=== PATIENT | female | born 1960 | race Caucasian/White ===

== ENCOUNTER 2017-02-27 13:47 | Inpatient (IN) | payer MEDICARE, MEDICAID ==
[~2017-02-27] VITALS: Ht 152.4 cm; Wt 96.1 kg
[2017-02-27] VITALS (164 sets, daily range): BP systolic 90–94; BP diastolic 68–71; PULSE 110–119; TEMP 98–98.4; O2SAT 81–96
[2017-02-27] MEDS ORDERED: SENOKOT S 50 MG1 TAB PO (14:22)
[2017-02-27] MEDS ORDERED: PAXIL 20MG20 MG PO (14:23)
[2017-02-27] MEDS ORDERED: MIRALAX PA17 GM/Dose PO (14:23)
[2017-02-27] MEDS ORDERED: OSCAL W/VIT D250 MG PO (14:24)
[2017-02-27] MEDS ORDERED: DILANTIN O100 MG/4 M (14:25)
[2017-02-27] MEDS ORDERED: PHENOBARBITAL32.4 MG PO (14:26)
[2017-02-27] MEDS ORDERED: REGLAN 5MG T5 MG/TAB PO (14:26)
[2017-02-27] MEDS ORDERED: QUESTRAN4 GM/9 GM PO (14:27)
[2017-02-27] MEDS ORDERED: LOMOTIL 0.025 M1 TAB PO ×2 (14:28→20:22)
[2017-02-27 15:11] LABS: HEMATOCRIT 45.5 % (37.0-47.0); MEAN CELL VOLUME 93 fl (80.0-100.0); MEAN CORPUSCULAR HEMOGLOBIN 33 pg (27.0-31.0); MEAN CORPUSCULAR HGB CONC 35 g/dl (33.0-37.0); MEAN PLATELET VOLUME 10.4 fl (7.4-10.4); PLATELET COUNT 285 K/mm3 (130-400); RED BLOOD COUNT 4.91 M/mm3 (4.10-5.30); REDCELL DISTRIBUTION WIDTH-CV 12.9 % (11.5-14.5); WHITE BLOOD COUNT 17.7 K/mm3 (4.8-10.8)
[2017-02-27 15:14] LABS: ADD PATHOLOGY DIFF REVIEW NO
[2017-02-27 15:22] LABS: ADJUSTED CALCIUM 9.2 mg/dL (8.4-10.2); ALBUMIN 3.7 gm/dL (3.5-5.0); CREATININE, serum 0.63 mg/dL (0.52-1.25); TOTAL PROTEIN 6.7 gm/dL (6.4-8.2)
[2017-02-27 15:27] LABS: POTASSIUM 2.5 mmol/L (3.4-5.0)
[2017-02-27 15:30] LABS: BAND 71 % (0-10); METAMYELOCYTE 1 % (0-0); MYELOCYTE 1 % (0-0); NEUTROPHILS 5 % (42.0-75.2); PLATELET ESTIMATE NORMAL (NORMAL); TOTAL CELLS COUNTED 100
[2017-02-27 15:56] LABS: PH 5 (5-8); SQUAMOUS EPITHELIAL None Seen /hpf; URINE APPEARANCE Hazy; URINE BACTERIA Rare /hpf; URINE BILIRUBIN Negative (NEGATIVE); URINE BLOOD Negative (NEGATIVE); URINE COLOR Amber; URINE GLUCOSE Negative (NEGATIVE); URINE KETONE Negative (NEGATIVE); URINE UROBILINOGEN Negative (NEGATIVE)
[2017-02-27 19:16] LABS: MAGNESIUM 1.5 mg/dL (1.6-2.3)
[2017-02-27] MEDS ORDERED: TYLENOL 325MG325 MG PO (20:19)
[2017-02-27] MEDS ORDERED: ADVIL200 MG PO (20:19)
[2017-02-27] MEDS ORDERED: MAXALT10 MG PO (20:22)
[2017-02-27 23:09] LABS: PH 5 (5-8); SQUAMOUS EPITHELIAL 0-2 /hpf; URINE APPEARANCE Clear; URINE BACTERIA None Seen /hpf; URINE BILIRUBIN Negative (NEGATIVE); URINE BLOOD 2+ (NEGATIVE); URINE COLOR Yellow; URINE GLUCOSE Negative (NEGATIVE); URINE KETONE Negative (NEGATIVE); URINE UROBILINOGEN Negative (NEGATIVE); URINE WBC 0-2 /hpf
[2017-02-28] VITALS (374 sets, daily range): BP systolic 95–112; BP diastolic 60–75; PULSE 90–106; TEMP 97.3–99; O2SAT 80–100
[2017-02-28 08:02] LABS: MEAN CELL VOLUME 97 fl (80.0-100.0); MEAN CORPUSCULAR HGB CONC 34 g/dl (33.0-37.0); MEAN PLATELET VOLUME 11.2 fl (7.4-10.4); RED BLOOD COUNT 3.68 M/mm3 (4.10-5.30); REDCELL DISTRIBUTION WIDTH-CV 13.2 % (11.5-14.5); WHITE BLOOD COUNT 13.1 K/mm3 (4.8-10.8)
[2017-02-28 08:12] LABS: HEMATOCRIT 35.7 % (37.0-47.0); MEAN CORPUSCULAR HEMOGLOBIN 33 pg (27.0-31.0); PLATELET COUNT 179 K/mm3 (130-400)
[2017-02-28 08:17] LABS: CALCIUM 7.3 mg/dL (8.4-10.2); CREATININE, serum 0.53 mg/dL (0.52-1.25); MAGNESIUM 3.6 mg/dL (1.6-2.3); POTASSIUM 4.4 mmol/L (3.4-5.0)
[2017-02-28 11:47] LABS: BAND 60 % (0-10); DOHLE BODIES PRESENT; EOSINOPHIL 1 % (0-4); METAMYELOCYTE 15 % (0-0); MYELOCYTE 3 % (0-0); NEUTROPHILS 7 % (42.0-75.2); PLATELET ESTIMATE NORMAL (NORMAL); TOTAL CELLS COUNTED 100; TOXIC GRANULATION PRESENT
[2017-02-28 12:04] LABS: ADD PATHOLOGY DIFF REVIEW YES
[2017-03-01 06:07] VITALS: BP 110/61; PULSE 86; TEMP 97.6
[2017-03-01 08:06] LABS: PATHOLOGY DIFF REVIEW OK
[2017-03-01 08:10] LABS: ADD PATHOLOGY DIFF REVIEW NO
[2017-03-01 08:14] LABS: MEAN CELL VOLUME 101 fl (80.0-100.0); MEAN CORPUSCULAR HGB CONC 32 g/dl (33.0-37.0); MEAN PLATELET VOLUME 11.6 fl (7.4-10.4); PLATELET COUNT 164 K/mm3 (130-400); RED BLOOD COUNT 3.51 M/mm3 (4.10-5.30); REDCELL DISTRIBUTION WIDTH-CV 13.9 % (11.5-14.5); WHITE BLOOD COUNT 10.6 K/mm3 (4.8-10.8)
[2017-03-01 08:33] LABS: CALCIUM 7.4 mg/dL (8.4-10.2); CREATININE, serum 0.49 mg/dL (0.52-1.25); MAGNESIUM 2.2 mg/dL (1.6-2.3)
[2017-03-01 08:39] LABS: POTASSIUM 2.4 mmol/L (3.4-5.0)
[2017-03-01 08:52] LABS: HEMATOCRIT 35.3 % (37.0-47.0); HEMOGLOBIN 11.4 g/dl (12.5-16.0); MEAN CORPUSCULAR HEMOGLOBIN 32 pg (27.0-31.0)
[2017-03-01 09:40] VITALS: BP 108/56; PULSE 82; TEMP 97.3
[2017-03-01 13:46] LABS: BAND 46 % (0-10); NEUTROPHILS 36 % (42.0-75.2); PLATELET ESTIMATE NORMAL (NORMAL); TOTAL CELLS COUNTED 100
[2017-03-01 14:10] VITALS: BP 96/61; PULSE 62; TEMP 97.5
[2017-03-01 17:24] VITALS: BP 89/50; PULSE 96; TEMP 98.8
[2017-03-01 22:00] VITALS: BP 94/54; PULSE 78; TEMP 97.5
[2017-03-02 04:02] LABS: CALCIUM 7.3 mg/dL (8.4-10.2); CREATININE, serum 0.45 mg/dL (0.52-1.25); MAGNESIUM 1.7 mg/dL (1.6-2.3); POTASSIUM 3.9 mmol/L (3.4-5.0)
[2017-03-02 05:08] VITALS: BP 101/53; PULSE 76; TEMP 97.6
[2017-03-02 10:24] VITALS: BP 92/55; PULSE 94; TEMP 97.9
[2017-03-02 13:40] VITALS: BP 92/56; PULSE 74; TEMP 98.1
[2017-03-02 17:40] VITALS: BP 107/63; PULSE 99
[2017-03-02 22:49] VITALS: BP 90/54; PULSE 102; TEMP 98.1
[2017-03-03 06:11] VITALS: BP 110/70; PULSE 91; TEMP 98.4
[2017-03-03 07:21] LABS: ADD PATHOLOGY DIFF REVIEW NO
[2017-03-03 07:35] LABS: HEMOGLOBIN 12.2 g/dl (12.5-16.0); MEAN CELL VOLUME 97 fl (80.0-100.0); MEAN CORPUSCULAR HEMOGLOBIN 32 pg (27.0-31.0); MEAN CORPUSCULAR HGB CONC 34 g/dl (33.0-37.0); MEAN PLATELET VOLUME 11.1 fl (7.4-10.4); PLATELET COUNT 115 K/mm3 (130-400); RED BLOOD COUNT 3.77 M/mm3 (4.10-5.30); REDCELL DISTRIBUTION WIDTH-CV 13.5 % (11.5-14.5); WHITE BLOOD COUNT 7.1 K/mm3 (4.8-10.8)
[2017-03-03 07:51] LABS: CALCIUM 7.4 mg/dL (8.4-10.2); CREATININE, serum 0.39 mg/dL (0.52-1.25); MAGNESIUM 1.5 mg/dL (1.6-2.3)
[2017-03-03 07:53] LABS: POTASSIUM 2.8 mmol/L (3.4-5.0)
[2017-03-03 08:09] LABS: HEMATOCRIT 36.4 % (37.0-47.0)
[2017-03-03 09:17] VITALS: BP 111/70; PULSE 107; TEMP 98.2
[2017-03-03 11:52] LABS: BAND 15 % (0-10); EOSINOPHIL 2 % (0-4); MYELOCYTE 5 % (0-0); NEUTROPHILS 59 % (42.0-75.2); TOTAL CELLS COUNTED 100
[2017-03-03 11:53] LABS: PLATELET ESTIMATE NORMAL (NORMAL)
[2017-03-03 13:22] VITALS: BP 111/69; PULSE 100; TEMP 98.2
[2017-03-03 16:54] VITALS: BP 115/72; PULSE 88; TEMP 97.6
[2017-03-03 20:52] VITALS: BP 110/64; PULSE 83; TEMP 97.5
[2017-03-04 00:50] VITALS: BP 105/63; PULSE 73; TEMP 98.5
[2017-03-04 04:54] VITALS: BP 112/69; PULSE 80; TEMP 97
[2017-03-04 08:12] LABS: HEMATOCRIT 37.4 % (37.0-47.0); HEMOGLOBIN 12.3 g/dl (12.5-16.0); MEAN CELL VOLUME 97 fl (80.0-100.0); MEAN CORPUSCULAR HEMOGLOBIN 32 pg (27.0-31.0); MEAN CORPUSCULAR HGB CONC 33 g/dl (33.0-37.0); MEAN PLATELET VOLUME 11.5 fl (7.4-10.4); PLATELET COUNT 123 K/mm3 (130-400); RED BLOOD COUNT 3.87 M/mm3 (4.10-5.30); REDCELL DISTRIBUTION WIDTH-CV 13.7 % (11.5-14.5); WHITE BLOOD COUNT 10.2 K/mm3 (4.8-10.8)
[2017-03-04 08:26] LABS: ANION GAP 7 mmol/L (7-16); BLOOD UREA NITROGEN < 2 mg/dL (7-17); CALCIUM 7.6 mg/dL (8.4-10.2); CARBON DIOXIDE 25 mmol/L (22-30); CHLORIDE 109 mmol/L (98-107); CREATININE, serum 0.39 mg/dL (0.52-1.25); GLUCOSE 95 mg/dL (74-106); MAGNESIUM 2.1 mg/dL (1.6-2.3); POTASSIUM 4.1 mmol/L (3.4-5.0); SODIUM 140 mmol/L (137-145)
[2017-03-04 08:27] LABS: ADD PATHOLOGY DIFF REVIEW NO
[2017-03-04 10:07] VITALS: BP 99/72; PULSE 99; TEMP 98.7
[2017-03-04] MEDS ORDERED: CIPRO 500MG TA500 MG PO (10:49)
[2017-03-04] MEDS ORDERED: KLOR-CON M2020 MEQ PO (11:25)
[2017-03-04 13:58] LABS: BAND 35 % (0-10); MYELOCYTE 5 % (0-0); NEUTROPHILS 40 % (42.0-75.2); TOTAL CELLS COUNTED 100
[2017-03-04 13:59] LABS: PLATELET ESTIMATE NORMAL (NORMAL)
== END 2017-03-04 12:55 | disposition home or self-care (01) | DRG 872 ==
LOC: COL.ER 13:47 → ICU 17:39 → SURG 02-28 12:11
PROVIDERS: Emergency Medicine; Internal Medicine; Nurse Practitioner Family
DX: A41.89 Other specified sepsis (principal); A04.8 Other specified bacterial intestinal infections; E44.0 Moderate protein-calorie malnutrition; Z68.1 Body mass index [BMI] 19.9 or less, adult; Z66 Do not resuscitate; G80.9 Cerebral palsy, unspecified; E87.6 Hypokalemia; E83.42 Hypomagnesemia; D69.6 Thrombocytopenia, unspecified
CPT/HCPCS: 99223-AI; 99232-AI; 99233-AI; 99239; A4315; J1650; J2543; J2560; J3475; J3480; J7030; J7040; J7050; Q9967

== ENCOUNTER 2020-12-08 20:27 | Observation (INO) | payer MEDICARE, MEDICAID ==
[~2020-12-08] VITALS: Ht 147.3 cm; Wt 42.0 kg
[~2020-12-08 20:27] MED LIST: ADVIL200 MG PO; CIPRO 500MG TA500 MG PO; DILANTIN O100 MG/4 M; KLOR-CON M2020 MEQ PO; LOMOTIL 0.025 M1 TAB PO; MAXALT10 MG PO; MIRALAX PA17 GM/Dose PO; OYSTER SHELL CA1 T22 PO; PAXIL 20MG20 MG PO; PHENOBARBITAL32.4 MG PO; QUESTRAN4 GM/9 GM PO; REGLAN 5MG T5 MG/TAB PO; SENOKOT S 50 MG1 TAB PO; TYLENOL 325MG325 MG PO
[2020-12-08 21:57] LABS: BASO # 0.1 (0.0-0.2); BASO % 0.8 % (0.0-2.0); EOS % 0.6 % (0-4.0); GRAN # 4.5 (1.4-6.5); GRAN % 73.3 % (42.2-75.2); HEMATOCRIT 48.6 % (37.0-47.0); HEMOGLOBIN 15.8 g/dl (12.5-16.0); LYMPH % 16.5 % (20.0-51.0); MEAN CELL VOLUME 104 fl (80.0-100.0); MEAN CORPUSCULAR HEMOGLOBIN 34 pg (27.0-31.0); MEAN CORPUSCULAR HGB CONC 33 g/dl (33.0-37.0); MEAN PLATELET VOLUME 10.7 fl (7.4-10.4); MONO # 0.5 (0.1-0.6); MONO % 8.6 % (1.7-9.3); PLATELET COUNT 231 K/mm3 (130-400); RED BLOOD COUNT 4.69 M/mm3 (4.10-5.30)
[2020-12-08 22:06] LABS: ALANINE AMINOTRANSFERASE 22 U/L (4-34); ALBUMIN 4.8 gm/dL (3.5-5.0); ALKALINE PHOSPHATASE 177 U/L (50-136); ANION GAP 14 mmol/L (7-16); AST,SGOT 24 U/L (15-37); BILIRUBIN,TOTAL 0.6 mg/dL (0.0-1.0); BLOOD UREA NITROGEN 24 mg/dL (7-17); CALCIUM 10.3 mg/dL (8.4-10.2); CARBON DIOXIDE 26 mmol/L (22-30); CHLORIDE 107 mmol/L (98-107); CREATININE, serum 0.38 (0.52-1.25); GLUCOSE 136 mg/dL (74-106); LIPASE 45 U/L (23-300); MAGNESIUM 2.3 mg/dL (1.6-2.3); POTASSIUM 4.2 mmol/L (3.4-5.0); SODIUM 147 mmol/L (137-145); TOTAL PROTEIN 8.5 gm/dL (6.4-8.2)
[2020-12-08 22:17] LABS: TROPONIN-I < 0.012 ng/mL (0.000-0.035)
[2020-12-09] VITALS (8 sets, daily range): BP systolic 101–137; BP diastolic 67–84; PULSE 67–101; TEMP 97.2–98.6
[2020-12-09 08:48] LABS: COLLECTION METHOD CATHETER
[2020-12-09 09:23] LABS: MUCOUS Present /lpf; PH 5 (5-8); SQUAMOUS EPITHELIAL 0-2 /hpf; URINE APPEARANCE Hazy; URINE BACTERIA Many /hpf; URINE BILIRUBIN Negative (NEGATIVE); URINE BLOOD Negative (NEGATIVE); URINE COLOR Amber; URINE GLUCOSE Negative (NEGATIVE); URINE KETONE 1+ (NEGATIVE); URINE LEUKOCYTE ESTERASE 1+ (NEGATIVE); URINE NITRATE Negative (NEGATIVE); URINE PROTEIN(semi-quant) 1+ (NEGATIVE); URINE RBC 0-2 /hpf
[2020-12-09] MEDS ORDERED: CARAFATE S1 GM/10 ML PO (13:41)
--- NOTE | 2020-12-09 13:50 | NUR ---
Pt to [facility] [place] [facility] via cart from PACU. Pt has eyes open. Does follow simple commands, is nonverbal. VSS. Pt shakes head "yes" to water cup. Pt takes water from syringe from mother and tolerates it well. Will continue to monitor. Call light within reach.
--- NOTE | 2020-12-09 14:05 | NUR ---
Pt continues to tolerate water without difficulties. Applesauce given to try. Mother at bedside. Call light within reach.
--- NOTE | 2020-12-09 14:20 | NUR ---
Pt tolerated 100% of applesauce without difficulties. Now resting. Mother denies needs. Call light within reach.
--- NOTE | 2020-12-09 14:35 | NUR ---
Pt continues to rest. Mother denies needs. Call light within reach.
--- NOTE | 2020-12-09 15:05 | NUR ---
Pt sleeping. Respirations even and unlabored. Call light within reach.
--- NOTE | 2020-12-09 15:35 | NUR ---
Brief checked and is clean. IV site saline locked. Will continue to monitor.
--- NOTE | 2020-12-09 16:00 | NUR ---
Discharge instructions reviewed with mother and [facility] staff. Both voice understanding. IV site discontinued with all parts intact. Pt transfered with 2 assist to power wheel chair.
--- NOTE | 2020-12-09 16:25 | NUR ---
Pt escorted to private car via powered wheel chair. Pt accompanied to [facility] by [facility] staff.
== END 2020-12-09 00:54 | disposition home or self-care (01) ==
LOC: COL.ER 20:27 → SDCO 12-09 00:53 → INPTSU 12-09 00:54 → UNDODEPER 12-09 09:35
PROVIDERS: Emergency Medicine; ADMIT Student in an Organized Health Care Education/Training Program
DX: T18.128A Food in esophagus causing other injury, initial encounter (principal); I10 Essential (primary) hypertension; G80.9 Cerebral palsy, unspecified; G40.909 Epilepsy, unspecified, not intractable, without status epilepticus; K21.00 Gastro-esophageal reflux disease with esophagitis, without bleeding; K22.4 Dyskinesia of esophagus; E87.6 Hypokalemia; Z20.822 Contact with and (suspected) exposure to COVID-19; Z66 Do not resuscitate; F32.9 Major depressive disorder, single episode, unspecified; Z99.3 Dependence on wheelchair; Z79.899 Other long term (current) drug therapy; Z88.1 Allergy status to other antibiotic agents; Z88.8 Allergy status to other drugs, medicaments and biological substances; Z79.2 Long term (current) use of antibiotics
CPT/HCPCS: J1100; J1610; J2060; J2310; J2405; J2560; J2704; J3010; J7030; Q2009